=== PATIENT | male | born 1985 | race Caucasian/White ===

== ENCOUNTER 2022-10-31 13:34 | Emergency (ER) | payer MEDICAID ==
[~2022-10-31] VITALS: Ht 167.6 cm; Wt 83.0 kg
[2022-10-31 13:43] VITALS: TEMP 97.7; O2SAT 98
[2022-10-31 15:10] LABS: BASOPHILS % 0.9 % (0.0-2.0); EOSINOPHILS % 2.9 % (0.0-5.0); HEMATOCRIT. 48.1 % (42.0-52.0); HEMOGLOBIN. 16.7 g/dL (14.0-18.0); LYMPHOCYTES % 36.4 % (20.0-50.0); MEAN CORPUSCULAR HEMOGLOBIN 31.6 pg (28.0-32.0); MEAN CORPUSCULAR HGB CONC 34.7 g/dL (31.0-37.0); MEAN CORPUSCULAR VOLUME 91.1 fL (80.0-94.0); MONOCYTES % 8.7 % (2.0-8.0); NEUTROPHILS % 51.1 % (40.0-76.0); PLATELET 228 x1000/uL (130-400); RED BLOOD CELL COUNT 5.28 mill/uL (4.7-6.1); RED CELL DISTRIBUTION WIDTH 13.4 % (11.6-14.6); WHITE BLOOD COUNT 8.3 x1000/uL (4.5-11.0)
[2022-10-31 15:17] LABS: PROTHROMBIN TIME 10.6 sec (9.6-11.0)
[2022-10-31 15:20] LABS: CHLORIDE 109 mEq/L (98-107); INDEX HEMOLYSI 1 (1-3); INDEX ICTERIC 1 (1-4); INDEX LIPEMIC 1 (1-3); POTASSIUM 3.5 mEq/L (3.5-5.1); SODIUM 137 mEq/L (136-145)
[2022-10-31 15:27] LABS: ALANINE AMINOTRANSFERASE 32 IU/L (13-61); ASPARTATE AMINOTRANSFERASE 20 IU/L (15-37); BILIRUBIN TOTAL 0.3 mg/dL (0.1-1.0); CALCIUM 8.8 mg/dL (8.5-10.1); CARBON DIOXIDE 24 mEq/L (21-32); CREATININE 0.9 mg/dL (0.6-1.3); GLUCOSE 88 mg/dL (70-105); PROTEIN TOTAL 7.9 g/dL (6.0-8.3); UREA NITROGEN BLOOD 11 mg/dL (7-21)
[2022-10-31 17:15] VITALS: BP 126/72; PULSE 66; RESP 18
[2022-10-31] MEDS ORDERED: KETOROLAC 30MG/ML VIAL IM ONE (17:15)
[2022-10-31] MEDS ORDERED: ACET-2708 MT (18:43)
== END 2022-10-31 18:52 | disposition home or self-care (01) ==
LOC: ER 13:34
DX: R10.11 Right upper quadrant pain (principal); R11.0 Nausea
CPT/HCPCS: 99285; 76705; 80053; 83690; 85025; 85610; 36415; 96372; J1885

== ENCOUNTER 2023-08-31 12:23 | Emergency (ER) | payer MEDICAID ==
[~2023-08-31] VITALS: Ht 167.6 cm; Wt 84.0 kg
[~2023-08-31 12:23] MED LIST: ACET-2708 MT
[2023-08-31] MEDS ORDERED: OFLO5DRO4 RIGHT EAR (12:45)
[2023-08-31 13:06] VITALS: BP 137/86; PULSE 89; RESP 18; TEMP 98.6
== END 2023-08-31 13:12 | disposition home or self-care (01) ==
LOC: ER 12:23
DX: H60.91 Unspecified otitis externa, right ear (principal); Z88.0 Allergy status to penicillin
CPT/HCPCS: 99283